=== PATIENT | male | born 2000 | race Caucasian/White ===

== ENCOUNTER 2019-08-02 09:46 | Emergency (ER) | payer OTHER ==
[2019-08-02] MEDS ORDERED: Tranexamic Acid 1,000 MG/10 ML SDV TOPICAL ONE (09:57)
--- NOTE | 2019-08-02 09:59 | ED ---
Laceration/Wound HPI - HPI Summary HPI Summary: 19 year old M arriving via private car complains of laceration at the base of the left fifth toe after running into the corner of his bed frame at 09:00 today 08/02. Unable to control the bleeding before arrival. No pain. He states that the laceration feels uncomfortable when he ambulates and bears weight. Discomfort rated 1/10 in severity. Symptoms aggravated by ambulating and weight bearing. Symptoms alleviated by nothing. Medications reviewed. Allergies noted. Admits to occasional alcohol and cigarettes. No recreational drugs. Up to date on vaccinations. Last tetanus unknown. - History of Current Complaint Stated Complaint: LAC BETWEEN TOES ON LEFT FOOT PER PT Time Seen by Provider: 08/02/19 09:51 Hx Obtained From: Patient Mechanism of Injury: Other - running into corner of his bed frame Onset/Duration: Lasting Hours - 1, Still Present Aggravating: Other - ambulating and weight bearing Alleviating: Nothing Timing: Constant Current Severity: Mild Pain Intensity: 1 Pain Scale Used: 0-10 Numeric - Allergy/Home Medications Allergies/Adverse Reactions: Allergies Allergy/AdvReac Type Severity Reaction Status Date / Time No Known Allergies Allergy Verified 08/02/19 09:50 Home Medications: Home Medications Adderall TAB* 15 mg PO DAILY PRN 08/02/19 [History Confirmed 08/02/19] Adderall Xr 30 mg Capsule 30 mg PO DAILY 08/02/19 [History Confirmed 08/02/19] PMH/Surg Hx/FS Hx/Imm Hx Endocrine/Hematology History: Denies: Hx Diabetes Cardiovascular History: Denies: Hx Hypertension - Surgical History Surgical History: None Infectious Disease History: No Infectious Disease History: Denies: Traveled Outside the [place] in Last 30 Days - Family History Known Family History: Negative: Cardiac Disease, Hypertension, Diabetes - Social History Alcohol Use: Occasionally Hx Substance Use: No Hx Tobacco Use: Yes Smoking Status (MU): Current Some Day Smoker Review of Systems Musculoskeletal: Negative - left fifth toe pain Positive: Other - laceration at the base of the left fifth toe All Other Systems Reviewed And Are Negative: Yes Physical Exam - Summary Physical Exam Summary: Constitutional: Well-developed, Well-nourished, Alert. (-) Distressed Skin: Warm, Dry HENT: Normocephalic; Atraumatic Eyes: Conjunctiva normal Neck: Musculoskeletal ROM normal neck. (-) JVD, (-) Stridor, (-) Tracheal deviation Cardio: Rhythm regular, rate normal, Heart sounds normal; Intact distal pulses; Radial pulses are 2+ and symmetric. (-) Murmur Pulmonary/Chest wall: Effort normal. (-) Respiratory distress, (-) Wheezes, (-) Rales Abd: Soft, (-) tenderness, (-) Distension, (-) Guarding, (-) Rebound Musculoskeletal: 2-cm laceration at the base of the left fifth toe with active bleeding at the plantar surface. FROM. No keeley tenderness. Lymph: (-) Cervical adenopathy Neuro: Alert, Oriented x3 Psych: Mood and affect Normal Triage Information Reviewed: Yes Vital Signs On Initial Exam: Initial Vitals Temp Pulse Resp BP Pulse Ox 99.1 F 112 16 138/100 96 08/02/19 09:48 08/02/19 09:48 08/02/19 09:48 08/02/19 09:48 08/02/19 09:48 Vital Signs Reviewed: Yes Procedures - Sedation Patient Received Moderate/Deep Sedation with Procedure: No Diagnostics - Vital Signs Vital Signs Temp Pulse Resp BP Pulse Ox 08/02/19 09:48 99.1 F 112 16 138/100 96 - Laboratory Lab Statement: Any lab studies that have been ordered have been reviewed, and results considered in the medical decision making process. Re-Evaluation - Re-Evaluation First Eval Re-Evaluation Time: 10:41 Change: Improved Comment: bleeding has stopped. another pressure dressing applied Laceration Repair Course/Dx - Course Course Of Treatment: Patient is here with a laceration at the base of his fifth toe on the plantar surface. Patient has active bleeding upon arrival. Patient is up-to-date on his vaccines per him. Patient's laceration is in a location that makes it near impossible to suture. Patient had a ATX soaked gauze placed on his laceration with a pressure dressing applied. Patient had cessation of bleeding. Patient is discharged with a pressure dressing applied to remove it 2 hours after discharge. - Clinical Impression Provider Diagnoses: Laceration of toe, left Discharge ED - Sign-Out/Discharge Documenting (check all that apply): Patient Departure - Discharge Plan Condition: Stable Disposition: HOME Patient Education Materials: Laceration (ED) Referrals: [facility] Peter NICOLE [Primary Care Provider] - 1 Day Additional Instructions: Remove the dressing at 1:00 PM today 08/02 or earlier if your toe is painful or numb. If your toe starts bleeding, apply pressure for 30 minutes with gauze. Do not look or stop pressure for 30 minutes. PLEASE RETURN TO EMERGENCY DEPARTMENT FOR ANY NEW OR WORSENING SYMPTOMS such as signs of infection such as worsening redness, swelling, warmth or pus coming out of the toe. Please follow up with your primary care physician. Please make all follow-ups in 1-3 days unless I advise you otherwise. - Billing Disposition and Condition Condition: STABLE Disposition: Home - Attestation Statements Document Initiated by Jamey: Yes Documenting Scribe: Lauren Spears Provider For Whom Jamey is Documenting (Include Credential): Damon Leos MD Scribe Attestation: Lauren Felipe, scribed for Damon Leos MD on 08/02/19 at 1113. Scribe Documentation Reviewed: Yes Provider Attestation: The documentation as recorded by the Lauren soriano accurately reflects the service I personally performed and the decisions made by , Damon Leos MD Status of Scribe Document: Viewed
[2019-08-02 11:00] VITALS: BP 126/71
== END 2019-08-02 10:59 | disposition home or self-care (01) ==
LOC: ED 09:46
DX: S91.115A Laceration without foreign body of left lesser toe(s) without damage to nail, initial encounter (principal); W22.03XA Walked into furniture, initial encounter; Y92.003 Bedroom of unspecified non-institutional (private) residence as the place of occurrence of the external cause; F17.200 Nicotine dependence, unspecified, uncomplicated; Z79.899 Other long term (current) drug therapy
CPT/HCPCS: 99282